=== PATIENT | male | born 1955 | race Two or more races ===

== ENCOUNTER 2018-07-12 11:10 | Outpatient (CLI) | payer OTHER | END 2018-07-12 16:44 | disposition home or self-care (01) | LOC: SONOGRAMA 11:10 | DX: E03.8 Other specified hypothyroidism (principal); E07.89 Other specified disorders of thyroid; J45.998 Other asthma ==

== ENCOUNTER 2021-06-25 08:00 | Outpatient (CLI) | payer OTHER | END 2021-06-25 08:30 | disposition home or self-care (01) | LOC: PPH VACUNA 08:00 | DX: Z23 Encounter for immunization (principal) ==

== ENCOUNTER 2022-09-16 09:15 | Outpatient (CLI) | payer OTHER | END 2022-09-16 09:19 | disposition home or self-care (01) | LOC: SONOGRAMA 09:15 | PROVIDERS: ATTEND Internal Medicine Gastroenterology | DX: R16.0 Hepatomegaly, not elsewhere classified (principal) ==

== ENCOUNTER 2025-05-31 08:48 | Outpatient (CLI) | payer OTHER | END 2025-05-31 08:53 | disposition home or self-care (01) | LOC: RAD 08:48 | PROVIDERS: ATTEND Specialist | DX: J45.998 Other asthma (principal) ==

== ENCOUNTER 2025-08-21 13:56 | Outpatient (CLI) | payer OTHER | END 2025-08-21 14:12 | disposition home or self-care (01) | LOC: TOM 13:56 | PROVIDERS: ATTEND Specialist | DX: J98.11 Atelectasis (principal); J43.9 Emphysema, unspecified ==